=== PATIENT | female | born 1940 | race Caucasian/White ===

== ENCOUNTER 2022-08-26 15:46 | Emergency (ER) | payer MEDICARE ==
[2022-08-26] MEDS ORDERED: Bacitracin Oint 1 GM U/D Packet TOP ONE (16:10)
[2022-08-26] MEDS ORDERED: Lidocaine 1% 5 ML VIAL INJECT ONE (16:10)
== END 2022-08-26 17:08 | disposition home or self-care (01) ==
LOC: JP.ED 15:46
DX: S81.811A Laceration without foreign body, right lower leg, initial encounter (principal); I10 Essential (primary) hypertension; Z79.82 Long term (current) use of aspirin; Z79.899 Other long term (current) drug therapy; Z90.49 Acquired absence of other specified parts of digestive tract; W23.1XXA Caught, crushed, jammed, or pinched between stationary objects, initial encounter
CPT/HCPCS: 12002; 99282

== ENCOUNTER 2023-04-15 07:49 | Day surgery (SDC) | payer MEDICARE ==
[2023-04-15] MEDS ORDERED: Propofol 200 MG/20 ML SDV ONE (08:21)
[2023-04-15] MEDS ORDERED: fentaNYL 100 MCG/2 ML SDV ONE (08:21)
[2023-04-15] MEDS ORDERED: Lactated Ringers 1,000 ML IV SCH (08:30)
== END 2023-04-15 12:06 | disposition home or self-care (01) ==
LOC: JP.SDS 07:49
PROVIDERS: ATTEND Student in an Organized Health Care Education/Training Program
DX: Z12.11 Encounter for screening for malignant neoplasm of colon (principal); K63.5 Polyp of colon; Q43.8 Other specified congenital malformations of intestine; K21.9 Gastro-esophageal reflux disease without esophagitis; N18.9 Chronic kidney disease, unspecified; Z80.0 Family history of malignant neoplasm of digestive organs; Z88.8 Allergy status to other drugs, medicaments and biological substances
CPT/HCPCS: 45380; 88305; J2704; J3010; J7120

== ENCOUNTER 2024-02-15 10:35 | Emergency (ER) | payer MEDICARE ==
[2024-02-15 11:52] LABS: HEMOGLOBIN 12.9 g/dL (11.2-15.5); WHITE BLOOD CELL COUNT,WBC 9.3 K/uL (3.2-11.0)
[2024-02-15 11:53] LABS: PLATELET COUNT,PLT 209 K/uL (130-375)
[2024-02-15 11:56] LABS: EOSINOPHILS ABSOLUTE MAN 0.09 K/uL (0.00-0.40); EOSINOPHILS PERCENT MAN 1 % (2-4); LYMPHOCYTES ABSOLUTE MAN 1.02 K/uL (0.8-3.3); LYMPHOCYTES PERCENT MAN 11 % (24-44); MONOCYTES ABSOLUTE MAN 0.84 K/uL (0.20-0.90); MONOCYTES PERCENT MAN 9 % (2-6); NEUTROPHILS ABSOLUTE MAN 7.35 K/uL (1.0-7.6); SEG NEUTROPHILS PERCENT MAN 79 % (36-66)
[2024-02-15 11:58] LABS: A/G RATIO 1.1 (1.2-2.2); ALANINE AMINOTRANSFERASE,ALT 28 U/L (12-78); ALBUMIN 3.8 g/dL (3.4-5.0); ALKALINE PHOSPHATASE 60 U/L (46-116); ASPARTATE AMNIOTRANSFERASE,AST 22 U/L (15-37); BILIRUBIN TOTAL 0.4 mg/dL (0.2-1.0); BLOOD UREA NITROGEN,BUN 23 mg/dL (7-18); CALCIUM 9.2 mg/dL (8.5-10.1); CARBON DIOXIDE,CO2 27 mmol/L (21-32); CHLORIDE,CL 101 mmol/L (100-108); CREATININE 1.2 mg/dL (0.6-1.0); EST CRCL DRUG DOSING (CG) 31.46 mL/min; ESTIMATED GFR 45 mL/min (>60); GLUCOSE RANDOM 109 mg/dL (74-106); PROTEIN TOTAL,TP 7.4 g/dL (6.4-8.2); SODIUM,NA 137 mmol/L (140-148); TROPONIN I HIGH SENSITIVITY 9.9 pg/mL (<=60.3)
[2024-02-15] MEDS: cloNIDine 0.1 MG Tab PO ONE (12:38)
== END 2024-02-15 14:04 | disposition home or self-care (01) ==
LOC: JP.ED 10:35
DX: I10 Essential (primary) hypertension (principal); Z79.82 Long term (current) use of aspirin; Z79.899 Other long term (current) drug therapy; Z90.49 Acquired absence of other specified parts of digestive tract
CPT/HCPCS: 36415; 80053; 84484; 85025; 93005; 99283; A9270